=== PATIENT | female | born 2000 | race Caucasian/White ===

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

== ENCOUNTER → 2019-07-02 | Outpatient (CLI) | payer OTHER ==
--- NOTE | 2019-07-02 13:50 | REP ---
Clinical: Trauma. Fall. Technique: AP, lateral, bilateral oblique views of the left hand. Findings: No acute fracture or dislocation. Skeletal structures, joint spaces, and surrounding soft tissues are normal. Impression: No acute fracture or dislocation. Electronically Signed by Charlie Mcdowell MD 07/02/2019 01:42 P
== END ==
LOC: M LRY 13:18
PROVIDERS: ATTEND Physician Assistant
DX: S69.92XA Unspecified injury of left wrist, hand and finger(s), initial encounter (principal); W18.30XA Fall on same level, unspecified, initial encounter; Y92.9 Unspecified place or not applicable
CPT/HCPCS: 73130; G0463

== ENCOUNTER 2020-12-18 13:17 | Emergency (ER) | payer OTHER ==
[~2020-12-18] VITALS: Ht 165.1 cm; Wt 77.3 kg
[~2020-12-18 13:17] MED LIST changes: +OMEP40CA4 PO; -OMEP40CA97 PO
[2020-12-18] MEDS ORDERED: NS 1,000 ML IV ONE (17:45)
--- NOTE | 2020-12-18 18:51 | REP ---
INDICATION: RUQ abd pain. COMPARISON: None. TECHNIQUE: Multiple ultrasonographic images of the abdominal right upper quadrant. FINDINGS: There is no cholelithiasis or pericholecystic fluid. There is mild gallbladder wall thickening up to 3 mm (up to 2 mm is normal. There is no intrahepatic or extrahepatic biliary duct dilatation. The common biliary duct measures 2 mm in diameter. The liver is normal size measuring up to 15.5 cm craniocaudad length. The hepatic parenchyma is homogeneous and otherwise unremarkable. There are limited views of the pancreas. The visualized portions of the pancreas are unremarkable. The right kidney is normal size measuring 11.2 x 3.8 x 4.1 cm. There is no right renal calculus, hydronephrosis, mass or cyst. There is no right upper quadrant free fluid. IMPRESSION: Mild gallbladder wall thickening. No cholelithiasis, pericholecystic fluid or biliary duct dilatation. Limited views of the pancreas. <Electronically signed by Bairon Clayton > 12/18/20 [id number]
[2020-12-18 19:26] LABS: BASO % 0.5 % (0.0-1.0); EOS # 0.1 10^3/uL (0.0-0.5); EOS % 0.7 % (0.0-3.0); HEMATOCRIT 40.8 % (36.0-47.0); HEMOGLOBIN 13.4 g/dl (12.0-15.5); LYMPH # 2.9 10^3/uL (1.5-5.0); LYMPH % 33.2 % (24.0-44.0); MEAN CORPUSCULAR HEMOGLOBIN 28.9 pg (27.0-33.0); MEAN CORPUSCULAR HGB CONC 32.8 g/dl (32.0-36.5); MEAN CORPUSCULAR VOLUME 87.9 fl (80.0-96.0); MONO # 0.8 10^3/uL (0.0-0.8); MONO % 8.6 % (2.0-8.0); NEUTROPHILS % 56.7 % (36.0-66.0); PLATELET COUNT, AUTOMATED 227 10^3/uL (150-450); RED BLOOD COUNT 4.64 10^6/uL (4.00-5.40); WHITE BLOOD COUNT 8.9 10^3/uL (4.0-10.0)
[2020-12-18 19:49] LABS: ALBUMIN 4.3 GM/DL (3.2-5.2); BILIRUBIN,DIRECT 0.1 MG/DL (0.0-0.2); BILIRUBIN,TOTAL 0.4 MG/DL (0.2-1.0)
[2020-12-18 20:19] VITALS: BP 117/51
[2020-12-18] MEDS ORDERED: ONDA4TAB6 PO (20:50)
[2020-12-18 21:13] LABS: RSV AMPLIFICATION NEGATIVE (NEGATIVE)
--- NOTE | 2020-12-19 06:42 | ED PDOC ---
Post-Departure Follow-Up gb us faxed to chucky johnson for fu Kye Juarez MD Dec 19, 2020 06:42
== END 2020-12-18 21:12 | disposition home or self-care (01) ==
LOC: M ED 13:17
DX: R11.2 Nausea with vomiting, unspecified (principal); R19.7 Diarrhea, unspecified; R10.9 Unspecified abdominal pain; G43.909 Migraine, unspecified, not intractable, without status migrainosus; K21.9 Gastro-esophageal reflux disease without esophagitis; F41.9 Anxiety disorder, unspecified; Z88.6 Allergy status to analgesic agent; Z91.011 Allergy to milk products